=== PATIENT | female | born 1940 | race Caucasian/White ===

== ENCOUNTER 2022-08-16 16:12 | Emergency (ER) | payer MEDICARE ==
--- NOTE | 2022-08-16 16:57 | ED Chest Pain ---
General Chief Complaint: Chest Wall Stated Complaint: CHEST PAIN Source: patient Exam Limitations: no limitations (LORAINE MUNIZ APRN) History of Present Illness Date Seen by Provider: Aug 16, 2022 Time Seen by Provider: 16:25 Initial Comments 82-year-old female presents to the ER with complaints of left shoulder, left upper back pain, left chest pain, left arm pain since Saturday. She states that she fell on Saturday, she is uncertain how she fell due to memory problems. The family with her here today was not with her when she fell. She was not seen after this fall, patient did not complain of any issues at that time, so they did not bring her in. Patient reports the pain in her left chest is intermittent. States pain is worse with deep breaths. She reports a little bit of shortness of air, thinks it is because she cannot take a deep breath. She describes the pain as sharp. Denies history of heart conditions or previous myocardial infarctions. Does have past medical history of diabetes, hypertension, arthritis, and hypothyroidism. She is unable to list her medi cations for her allergies due to her memory issues. (LORAINE MUNIZ APRN) Allergies and Home Medications Allergies Coded Allergies: No Known Drug Allergies (Unverified , 08/16/22) Patient Home Medication List Home Medication List Reviewed: Yes (LORAINE MUNIZ APRN) Review of Systems Review of Systems Constitutional: see HPI (LORAINE MUNIZ APRN) Past Ehqegup-Ywhzuy-Wdkjxo Hx Patient Social History Tobacco Use?: No Use of E-Cig and/or Vaping dev: No Substance use?: No Alcohol Use?: Yes Alcohol Frequency: Rarely Pt feels they are or have been: No (LORAINE MUNIZ APRN) Past Medical History Surgery/Hospitalization HX: THYROID, CHRONIC PAIN, DM HYSTO, WRIST, SHOULDER (LORAINE MUNIZ APRN) Physical Exam Vital Signs Vital Signs - First Documented 08/16/22 16:24 Temp 36.4 Pulse 80 Resp 14 B/P (MAP) 192/102 (132) Pulse Ox 97 O2 Delivery Room Air (ELAYNE PAYTON MD) Vital Signs Capillary Refill : (LORAINE MUNIZ APRN) Height, Weight, BMI Height: '" Weight: lbs. oz. kg; BMI Method: General Appearance: No Apparent Distress, WD/WN Neck: Full Range of Motion, Normal Inspection, Non Tender, Supple Respiratory: Lungs Clear, Normal Breath Sounds, No Accessory Muscle Use, No Respiratory Distress, Other (Left chest is very tender to palpation) Cardiovascular: Regular Rate, Rhythm Gastrointestinal: Non Tender, Soft Extremity: Normal Range of Motion Neurologic/Psychiatric: Alert, Normal Mood/Affect Skin: Normal Color, Warm/Dry Other comments Left upper netbackup administrator to palpation, left shoulder tender to palpation, left chest tender to palpation (LORAINE MUNIZ APRN) Progress/Results/Core Measures Results/Orders Lab Results Laboratory Tests Test 08/16/22 16:28 Range/Units White Blood Count 9.9 4.3-11.0 10^3/uL Red Blood Count 4.80 3.80-5.11 10^6/uL Hemoglobin 14.6 11.5-16.0 g/dL Hematocrit 43 35-52 % Mean Corpuscular Volume 90 80-99 fL Mean Corpuscular Hemoglobin 30 25-34 pg Mean Corpuscular Hemoglobin Concent 34 32-36 g/dL Red Cell Distribution Width 12.9 10.0-14.5 % Platelet Count 364 130-400 10^3/uL Mean Platelet Volume 10.3 9.0-12.2 fL Immature Granulocyte % (Auto) 0 % Neutrophils (%) (Auto) 60 42-75 % Lymphocytes (%) (Auto) 27 12-44 % Monocytes (%) (Auto) 9 0-12 % Eosinophils (%) (Auto) 3 0-10 % Basophils (%) (Auto) 1 0-10 % Neutrophils # (Auto) 6.0 1.8-7.8 10^3/uL Lymphocytes # (Auto) 2.7 1.0-4.0 10^3/uL Monocytes # (Auto) 0.9 0.0-1.0 10^3/uL Eosinophils # (Auto) 0.3 0.0-0.3 10^3/uL Basophils # (Auto) 0.1 0.0-0.1 10^3/uL Immature Granulocyte # (Auto) 0.0 0.0-0.1 10^3/uL Prothrombin Time 12.7 12.2-14.7 SEC INR Comment 0.9 0.8-1.4 Activated Partial Thromboplast Time 30 24-35 SEC Sodium Level 138 135-145 MMOL/L Potassium Level 3.3 L 3.6-5.0 MMOL/L Chloride Level 102 98-107 MMOL/L Carbon Dioxide Level 27 21-32 MMOL/L Anion Gap 9 5-14 MMOL/L Blood Urea Nitrogen 9 7-18 MG/DL Creatinine 0.75 0.60-1.30 MG/DL Estimat Glomerular Filtration Rate 80 BUN/Creatinine Ratio 12 Glucose Level 189 H 70-105 MG/DL Calcium Level 9.8 8.5-10.1 MG/DL Corrected Calcium 9.8 8.5-10.1 MG/DL Magnesium Level 1.9 1.6-2.4 MG/DL Total Bilirubin 0.4 0.1-1.0 MG/DL Aspartate Amino Transf (AST/SGOT) 17 5-34 U/L Alanine Aminotransferase (ALT/SGPT) 19 0-55 U/L Alkaline Phosphatase 95 40-136 U/L Troponin I < 0.028 <0.028 NG/ML Total Protein 7.3 6.4-8.2 GM/DL Albumin 4.0 3.2-4.5 GM/DL (ELAYNE PAYTON MD) Vital Signs/I&O 08/16/22 08/16/22 16:24 17:58 Temp 36.4 36.4 Pulse 80 85 Resp 14 14 B/P (MAP) 192/102 (132) 170/74 Pulse Ox 97 96 O2 Delivery Room Air Room Air (ELAYNE PAYTON MD) Progress Progress Note : Progress Note Patient seen and evaluated, resting comfortably in bed, no acute distress. Based on exam and symptoms, work-up initiated including CBC, CMP, magnesium, coags, troponin. Chest x-ray with ribs ordered. Will order [facility] for patient, since she takes this is at home. Pain is likely musculoskeletal in nature due to pain with palpation. Labs and imaging reviewed. CBC grossly normal. CMP shows decreased potassium 3.3. Glucose elevated 189. Troponin negative. Magnesium normal 1.9. Chest x-ray shows no acute cardiopulmonary abnormalities and no displaced rib fractures. Results discussed with patient. She reports improved pain after [facility]. Patient states she is ready to leave. Discharge instructions and return precautions provided. (LORAINE MUNIZ APRN) Initial ECG Impression Date: Aug 16, 2022 Initial ECG Impression Time: 16:33 Initial ECG Rate: 86 Initial ECG Rhythm: Normal Sinus Initial ECG Intervals: Normal Initial ECG Impression: Normal Initial ECG Comparisson: No Previous ECG Available Comment No significant, no ST elevation or T wave inversion. (LORAINE MUNIZ APRN) Diagnostic Imaging Diagonstic Imaging: Xray Plain Films/CT/US/NM/MRI: chest, other (ribs) Comments [facility], [place] NAME: JONATHAN ROGEL [facility] REC#: [id number] PT STATUS: REG ER : 1940 PHYSICIAN: LORAINE MUNIZ APRN ADMIT DATE: 08/16/22/ER Signed Date of Exam:08/16/22 RIBS/UNILATERAL WITH CHEST EXAMINATION: PA chest, single view. Left rib radiographs, 3 views. COMPARISON: None. HISTORY: 82-year-old female, chest and left rib pain. FINDINGS: Heart size and mediastinal contours are unremarkable. There is no identified pneumothorax. There is no large pleural effusion. There is no identified focal airspace consolidation. There is no identified significantly displaced left-sided rib fracture. IMPRESSION: 1. No identified significantly displaced left rib fracture. 2. No identified acute cardiopulmonary abnormality. Dictated by: Dictated on workstation # [id number] Dict: 08/16/227 Trans: 08/16/22 171 CVB [id number] Interpreted by: TARIQ FRENCH MD Electronically signed by: TARIQ FRENCH MD 08/16/22 1714 (LORAINE MUNIZ APRN) Departure Impression Primary Impression: Chest wall pain Additional Impression: Hypokalemia Disposition: 01 HOME, SELF-CARE Condition: Stable Departure-Patient Inst. Decision time for Depature: 17:45 (LORAINE MUNIZ APRN) Referrals: NO,LOCAL PHYSICIAN (PCP/Family) Primary Care Physician Patient Instructions: Chest Pain That Is Not Caused by the Heart (DC) Add. Discharge Instructions: Take your pain medication as prescribed. Increase potassium in your diet. Follow-up with your primary care provider if symptoms continue. Return for severe chest pain, severe shortness of breath, or any other new, concerning, or worsening symptoms. All discharge instructions reviewed with patient and/or family. Voiced understanding. ATTENDING PHYSICIAN NOTE: I was physically present as attending physician in the emergency department during the care of this patient, but I was not directly involved in the decision making or delivery of care for this patient. (ELAYNE PAYTON MD) LORAINE MUNIZ APRN Aug 16, 2022 16:57 ELAYNE PAYTON MD Aug 20, 2022 13:38
[2022-08-16 16:58] LABS: BASOPHILS # (AUTO) 0.1 10^3/uL (0.0-0.1); BASOPHILS % (AUTO) 1 % (0-10); EOSINOPHILS # (AUTO) 0.3 10^3/uL (0.0-0.3); EOSINOPHILS % (AUTO) 3 % (0-10); HEMATOCRIT 43 % (35-52); HEMOGLOBIN 14.6 g/dL (11.5-16.0); LYMPHOCYTES # (AUTO) 2.7 10^3/uL (1.0-4.0); LYMPHOCYTES % (AUTO) 27 % (12-44); MEAN CORPUSCULAR HEMOGLOBIN 30 pg (25-34); MEAN CORPUSCULAR HGB CONC 34 g/dL (32-36); MEAN CORPUSCULAR VOLUME 90 fL (80-99); MEAN PLATELET VOLUME 10.3 fL (9.0-12.2); MONOCYTES # (AUTO) 0.9 10^3/uL (0.0-1.0); MONOCYTES % (AUTO) 9 % (0-12); NEUTROPHILS % (AUTO) 60 % (42-75); PLATELET COUNT 364 10^3/uL (130-400); WHITE BLOOD COUNT 9.9 10^3/uL (4.3-11.0)
[2022-08-16] MEDS ORDERED: HYDROcodone/APAP 5 MG/325 MG (LORTAB) TAB PO ONE (17:00)
[2022-08-16 17:01] LABS: CHLORIDE 102 MMOL/L (98-107); POTASSIUM 3.3 MMOL/L (3.6-5.0); SODIUM 138 MMOL/L (135-145)
[2022-08-16 17:02] LABS: CALCIUM 9.8 MG/DL (8.5-10.1); INR 0.9 (0.8-1.4); PROTHROMBIN TIME PATIENT 12.7 SEC (12.2-14.7)
[2022-08-16 17:03] LABS: GLUCOSE 189 MG/DL (70-105)
[2022-08-16 17:04] LABS: TOTAL PROTEIN 7.3 GM/DL (6.4-8.2)
[2022-08-16 17:05] LABS: CARBON DIOXIDE 27 MMOL/L (21-32)
[2022-08-16 17:06] LABS: BILIRUBIN,TOTAL 0.4 MG/DL (0.1-1.0)
[2022-08-16 17:07] LABS: ALKALINE PHOSPHATASE 95 U/L (40-136); CREATININE SERUM 0.75 MG/DL (0.60-1.30); GFR ESTIMATED 80
[2022-08-16 17:08] LABS: BUN/CREATININE RATIO 12
[2022-08-16 17:10] LABS: ALANINE AMINOTRANSFERASE 19 U/L (0-55); MAGNESIUM 1.9 MG/DL (1.6-2.4)
--- NOTE | 2022-08-16 17:10 | Diagnostic Imaging Report ---
EXAMINATION: PA chest, single view. Left rib radiographs, 3 views. COMPARISON: None. HISTORY: 82-year-old female, chest and left rib pain. FINDINGS: Heart size and mediastinal contours are unremarkable. There is no identified pneumothorax. There is no large pleural effusion. There is no identified focal airspace consolidation. There is no identified significantly displaced left-sided rib fracture. IMPRESSION: 1. No identified significantly displaced left rib fracture. 2. No identified acute cardiopulmonary abnormality. Dictated by: Dictated on workstation # [id number]
[2022-08-16] MEDS ORDERED: KCL 20 MEQ TAB (K-DUR) PO ONE (17:30)
[2022-08-16 17:58] VITALS: BP 170/74
== END 2022-08-16 18:02 | disposition home or self-care (01) ==
LOC: ER 16:17
DX: R07.89 Other chest pain (principal); E87.6 Hypokalemia; M54.6 Pain in thoracic spine; M25.512 Pain in left shoulder; E11.9 Type 2 diabetes mellitus without complications; R41.3 Other amnesia
CPT/HCPCS: 36415; 71101; 80053; 83735; 84484; 85025; 85610; 85730; 93005; 93041